=== PATIENT | male | born 1955 | race Caucasian/White ===

== ENCOUNTER 2021-01-07 09:55 | Emergency (ER) | payer MEDICARE, SELFPAY ==
[2021-01-07 10:07] VITALS: BP 140/79; PULSE 84; RESP 17; TEMP 36.9; O2SAT 97; BMI 31.8
--- NOTE | 2021-01-07 10:20 | ED_ITS ---
HPI - Back Pain/Injury General Chief Complaint: Back Pain/Injury Stated Complaint: kidney discomfort Time Seen by Provider: 01/07/21 10:11 Source: patient Mode of arrival: Ambulatory Limitations: no limitations History of Present Illness HPI Narrative: Patient is a 65-year-old male. According to his he has had a stroke in the past does have some issues with short-term memory. He is here for evaluation of right-sided back pain. According to the patient he has had right-sided back pain for the past year. Unsure if it has been on a daily basis but he states that for the past couple days his symptoms have worsened. He stated that the symptoms got worse today but that he also stated that it was worse last evening. Does not appear to be any specific reason for the increase in discomfort. He denies any abdominal pain. No skin changes. No testicular pain. Related Data Home Medications Medication Instructions Recorded Confirmed fluoxetine 20 mg PO DAILY 01/07/21 01/07/21 levothyroxine 100 mcg PO DAILY 01/07/21 01/07/21 Previous Rx's Medication Instructions Recorded cyclobenzaprine 10 mg PO TID PRN #14 tab 01/07/21 Allergies Allergy/AdvReac Type Severity Reaction Status Date / Time No Known Drug Allergies Allergy Verified 01/07/21 10:11 Review of Systems Constitutional Constitutional: Denies fever(s) Cardiovascular Cardiovascular: Denies chest pain and Denies dyspnea Respiratory Respiratory: Denies dyspnea Gastrointestinal Gastrointestinal: Denies abdominal pain Genitourinary Genitourinary: Denies testicular pain Musculoskeletal Musculoskeletal: Reports back pain Integumentary/Breasts Skin/Breast: Denies rash Hematologic/Lymphatic On Anticoagulants: No Allergic/Immunologic Allergic/Immunologic: Reports system reviewed and no additional complaints, exc ept as documented Patient History Medical History History of CVA (cerebrovascular accident) Social History Smoking Status: Never smoker Smoking Status: Never smoker alcohol intake frequency: a few times a week Substance Use Type: does not use Exam Initial Vital Signs Initial Vital Signs: Vital Signs Temperature 98.4 F 01/07/21 10:07 Pulse Rate 84 01/07/21 10:07 Respiratory Rate 17 01/07/21 10:07 Blood Pressure 140/79 01/07/21 10:07 Pulse Oximetry 97 01/07/21 10:07 Const General: cooperative Limitations: mental status not altered HENMT Head: normal to inspection and normocephalic Resp Effort & Inspection: normal respiratory effort Cardio Rate: regular rate Back/Spine/Pelvis Thoracic/Lumbar Spine: paraspinal tenderness (Right-sided thoracolumbar discomfort), No thoracic spinal tenderness and No lumbar spinal tenderness Skin Lesions: no lesions Rashes: no rashes Neuro General: patient alert and patient awake Extrem General: normal to inspection Psych Appearance: grossly normal and well kempt Course Vital Signs Vital signs: Vital Signs - 8 hr 01/07/21 10:07 Temperature 98.4 F Pulse Rate 84 Respiratory Rate 17 Blood Pressure 140/79 Pulse Oximetry 97 [facility] - Back Pain/Injury Lab Data Attestation: I reviewed the patient's lab results. Labs: Urine Dip Bedside Urine Glucose Negative Bedside Urine Bilirubin - Negative Bedside Urine Ketone - Negative Urine Specific [place] 1.030 Bedside Urine Occult Blood - Negative Bedside Urine pH 6.0 Bedside Urine Protein - Negative Bedside Urine Urobilinogen - Negative Bedside Urine Nitrite - Negative Bedside Urine Leukocytes - Negative Esterase [facility] Narrative Medical decision making narrative: I was able to reproduce the discomfort along the right-sided paraspinal region in the thoracolumbar area. It was lateral to midline. He had no midline tenderness. He had no flank tenderness. There is no skin rashes over the area. I have a very high suspicion that this is musculoskeletal in origin. Patient is concerned that he has a kidney issue based on the location of his discomfort however I feel that this is less likely as his discomfort is over the lower ribs and I am confident that I am not palpating his kidney in the location where he is having the discomfort. There is no signs of trauma. I do not feel any radiologic studies are necessary. We did discuss conservative treatment. He was given return precautions. He expressed understanding and agreement. Discharge Plan Departure Patient Disposition: Home Clinical Impression: Strain of lumbar region Instructions: DI for Back Strain or Sprain Activity Restrictions/Additional Instructions: The urinalysis is unremarkable. There are no rashes over the area that would make me concerned about an infection such as shingles. I have low suspicion that your symptoms today are result of your kidneys. I recommend that you continue with conservative measures to include heat in ice and light stretching and anti-inflammatories. You can use the muscle relaxers given to you today as needed. Return to the emergency department for any new or worsening symptoms Prescriptions: New cyclobenzaprine 10 mg tablet 10 mg PO TID PRN (Reason: muscle spasm) Qty: 14 RF: 0 No Action fluoxetine 20 mg capsule 20 mg PO DAILY RF: 0 levothyroxine 100 mcg tablet 100 mcg PO DAILY RF: 0
[2021-01-07 11:06] VITALS: BP 139/75; PULSE 78; RESP 19; O2SAT 96
== END 2021-01-07 11:07 | disposition home or self-care (01) ==
PROVIDERS: Emergency Provider Emergency Medicine
DX: S39.012A Strain of muscle, fascia and tendon of lower back, initial encounter (principal)
CPT/HCPCS: 81003; 99281; 99282

== ENCOUNTER → 2022-07-18 16:19 | Outpatient (CLI) | payer OTHER, SELFPAY ==
[2022-07-18 17:11] LABS: Add Manual Diff / Slide Review NO; Basophils Absolute Auto 0 /uL (0-100); Basophils Percent Auto 0.5 % (0-2); Eosinophils Absolute Auto 100 /uL (0-450); Eosinophils Percent Auto 1.3 % (2-4); Hematocrit 42.1 % (41-53); Hemoglobin 14.4 g/dL (13.5-17.5); Lymphocytes Absolute Auto 1100 /uL (1100-4500); Mean Corpuscular HGB Conc 34.2 % (30-36); Mean Corpuscular Hemoglobin 31.3 PG (26-34); Mean Corpuscular Volume 91.6 fL (80-100); Monocytes Absolute Auto 600 /uL (0-900); Monocytes Percent Auto 8.7 % (3-14); Neutrophils Absolute Auto 5000 /uL (1500-7000); Neutrophils Percent Auto 73.5 % (50-75); Platelet Count 209 X10^3/uL (150-400); White Blood Cell Count 6.7 X10^3/uL (4.5-11.0)
[2022-07-18 17:20] LABS: Hemoglobin A1C% w Est Avg Glu 5.5 % (4.0-6.0)
[2022-07-18 17:26] LABS: Alanine Aminotransferase 19 IU/L (<50); Albumin 4.3 g/dL (3.5-5.0); Albumin Globulin Ratio 1.5 (1.0-2.8); Alkaline Phosphatase 80 U/L (38-126); Aspartate Aminotransferase 22 IU/L (17-59); BUN Creatinine Ratio 15.8 (6-22); Bilirubin Total 0.4 mg/dL (0.2-1.3); Blood Urea Nitrogen 19 mg/dL (9-20); Carbon Dioxide 28 mmol/L (22-32); Chloride 106 mmol/L (98-107); Cholesterol 122 mg/dL (140-199); Estimated Glomerular Filt Rate > 60 mL/min (>60); Globulin 2.9 g/dL (1.7-4.1); Glucose 120 mg/dL (80-110); HDL Cholesterol 60 mg/dL (40-60); HEMOLYSIS < 15 (0-50); LDL Cholesterol Calculated 45 mg/dL (<100); Potassium 4.5 mmol/L (3.4-5.1); Sodium 142 mmol/L (137-145); Total Protein 7.2 g/dL (6.3-8.2); Triglycerides 86 mg/dL (35-150)
[2022-07-18 17:58] LABS: TSH w/ Reflex to FT4 3.36 uIU/mL (0.47-4.68)
== END ==
PROVIDERS: PCP Family Medicine; Referring Provider Family Medicine; Visit Provider Family Medicine
DX: E03.9 Hypothyroidism, unspecified (principal); E78.5 Hyperlipidemia, unspecified; I63.9 Cerebral infarction, unspecified
CPT/HCPCS: 36415; 80053; 80061; 83036; 84443; 85025

== ENCOUNTER → 2023-08-29 11:55 | Outpatient (CLI) | payer MEDICARE, SELFPAY ==
[2023-08-29 13:15] LABS: Hemoglobin A1C% w Est Avg Glu 5.4 % (4.0-6.0)
[2023-08-29 13:51] LABS: Alanine Aminotransferase 19 IU/L (<50); Albumin 4.1 g/dL (3.5-5.0); Albumin Globulin Ratio 1.5 (1.0-2.8); Alkaline Phosphatase 73 U/L (38-126); Aspartate Aminotransferase 29 IU/L (17-59); BUN Creatinine Ratio 14.9 (6-22); Bilirubin Total 0.6 mg/dL (0.2-1.3); Blood Urea Nitrogen 18 mg/dL (9-20); Calcium 9.5 mg/dL (8.4-10.2); Carbon Dioxide 29 mmol/L (22-32); Chloride 105 mmol/L (98-107); Estimated Glomerular Filt Rate > 60 mL/min (>60); Globulin 2.8 g/dL (1.7-4.1); Glucose 106 mg/dL (80-110); HEMOLYSIS < 15 (0-50); Potassium 4.5 mmol/L (3.4-5.1); Sodium 140 mmol/L (137-145); Total Protein 6.9 g/dL (6.3-8.2)
[2023-08-29 14:21] LABS: Prostate Specific Antigen Scrn 2.65 ng/mL (0.1-4.0)
[2023-08-29 14:23] LABS: TSH w/ Reflex to FT4 3.45 uIU/mL (0.47-4.68)
[2023-08-30 17:43] LABS: HIV 1 & 2 Ab/Ag 4th Gen Combo NEGATIVE (NEGATIVE); Hep C Virus Ab w/Reflex Quant NEGATIVE s/c (NEGATIVE)
== END ==
PROVIDERS: PCP Family Medicine; Referring Provider Family Medicine; Visit Provider Family Medicine
DX: Z00.00 Encounter for general adult medical examination without abnormal findings (principal); E78.5 Hyperlipidemia, unspecified; Z12.5 Encounter for screening for malignant neoplasm of prostate; E03.9 Hypothyroidism, unspecified
CPT/HCPCS: 36415; 80053; 83036; 84443; 86803; 87389; G0103

== ENCOUNTER 2023-11-16 19:59 | Inpatient (IN) | payer MEDICARE, SELFPAY ==
[2023-11-16] VITALS (13 sets, daily range): BP systolic 138–184; BP diastolic 79–97; PULSE 65–91; RESP 10–28; TEMP 36.4–36.8; O2SAT 93–97; BMI 32.9; BMI 31.6
--- NOTE | 2023-11-16 20:07 | DI.CT.S_ITS ---
PROCEDURE: CT STROKE INDICATIONS: L FACIAL DROOP TECHNIQUE: Noncontrast 4.5 mm thick angled axial sections acquired from the foramen magnum to the vertex, with coronal reformats. For radiation dose reduction, the following was used: automated exposure control, adjustment of mA and/or kV according to patient size. COMPARISON: None. FINDINGS: Image quality: Diagnostic. CSF spaces: Basal cisterns are patent. No extra-axial fluid collections. The ventricles are symmetric in size and shape. Brain: Probable subacute lacunar infarct in left basal ganglia. No intracranial bleeds or masses. There is cerebral volume loss for age, with resultant ventricular and sulcal prominence. There are periventricular and deep white matter chronic small vessel ischemic changes. There is intracranial internal carotid artery atherosclerosis. Skull and face: Calvarium and visualized facial bones appear intact, without suspicious lesions. Sinuses: Visualized sinuses and mastoids are clear. IMPRESSION: 1. Suspect subacute lacunar infarct in the left basal ganglia. This study fulfills neurological imaging criteria for inclusion or exclusion of acute stroke therapies based on available published neurological guidelines. Dictated by: Jorge A Smith M.D. on 11/16/2023 at 20:17 Approved by: Jorge A Smith M.D. on 11/16/2023 at 20:19
--- NOTE | 2023-11-16 20:15 | ED.NEUROSD ---
HPI - Neuro Symptoms/Deficit General Chief Complaint: Neuro Symptoms/Deficit Stated Complaint: TIA LKW 1919 Time Seen by Provider: 11/16/23 20:00 History of Present Illness HPI Narrative: 67-year-old male with history of CVA, no residual deficits, hyperlipidemia, hypothyroidism presents by EMS from home for slurred speech and left-sided facial droop. Patient was discharged this evening from [facility] in [place] for exact same presentation. Patient underwent imaging including CT angio and MRI that did not show any obvious abnormalities. Patient was discharged on aspirin and Plavix. Patient states that he went home and while he was talking to his his speech became ?slurry?. Family requested that patient be sent to [facility] instead of going back to [facility] because they felt like they discharged him too soon. On arrival patient had normal speech but did have a slight droop to his left upper lip. Related Data Home Medications Medication Instructions Recorded Confirmed aspirin 325 mg tablet 325 mg PO DAILY 07/18/22 11/16/23 Previous Rx's Medication Instructions Recorded atorvastatin 40 mg tablet 40 mg PO DAILY #90 tabs 08/29/23 fluoxetine 20 mg capsule 60 mg (3 x 20 mg) PO DAILY #270 08/29/23 caps levothyroxine 100 mcg tablet 100 mcg PO DAILY #90 tabs 08/29/23 Allergies Allergy/AdvReac Type Severity Reaction Status Date / Time No Known Drug Allergies Allergy Verified 08/29/23 11:19 Review of Systems Review of Systems Narrative: See HPI Patient History Medical History Encounter for subsequent annual wellness visit (AWV) in Medicare patient Depression Right sided weakness Hyperlipidemia Hypothyroid Ischemic stroke History of CVA (cerebrovascular accident) Social History household members: spouse Smoking Status: Never smoker alcohol intake: current Smoking Status: Never smoker alcohol intake frequency: a few times a week Substance Use Type: does not use Exam Initial Vital Signs Initial Vital Signs: Vital Signs Pulse Rate 91 H 11/16/23 20:07 Pulse Oximetry 93 11/16/23 20:07 Const: Awake, alert, no acute distress, nontoxic appearing Cardiac: regular rate, regular rhythm RESP: unlabored, clear bilaterally, no wheezing GI: Soft, nontender, nondistended, no rebound, no guarding MSK: Atraumatic, full range of motion, pulses equal Skin: Warm, Dry, intact, no rashes Neuro: AO x3, sensation intact and equal, strength intact and equal, no ataxia, no drift, normal speech. Slight left upper lip droop Course Orders Ordered: ED Orders 11/16/23 20:07 CT Stroke Stat Urinalysis and Microscopic Stat Urine Drug Screen, Rapid Stat EKG-12 Lead Stat 11/16/23 20:15 Complete Blood Count AUTO DIFF Stat Comprehensive Metabolic Panel Stat Ethanol (ETOH) Stat PTT Partial Thromboplastin John Stat Prothrombin Time INR Stat Troponin & CK Cardiac Panel Stat 11/16/23 20:17 CT angio head and neck Stat Acetaminophen (Acetaminophen 325 Mg Tablet) 650 mg PO Q6H PRN PRN Reason: Fever/Mild Pain (1-3) Hydrocodone Bitart/Acetaminophen (Hydrocodone/Acet 5/325 Tablet) 1 tab PO Q4H PRN PRN Reason: Pain, Moderate (4-6) Al Hydrox/Mg Hydrox/Simethicone (Mag Hydrox/Alum/Simeth 30 Ml Udc) 30 ml PO Q6HR PRN PRN Reason: Dyspepsia Aspirin (Aspirin Ec 81 Mg Tablet) 81 mg PO DAILY KARISSA Atorvastatin Calcium (Atorvastatin 20 Mg Tablet) 40 mg PO DAILY KARISSA Calcium Carbonate (Calcium Carbonate 500 Mg Tab) 1,000 mg PO Q4HR PRN PRN Reason: Dyspepsia Clopidogrel Bisulfate (Clopidogrel 75 Mg Tablet) 75 mg PO DAILY KARISSA Fluoxetine HCl (Fluoxetine 20 Mg Capsule) 60 mg PO DAILY [facility] Hydralazine HCl (Hydralazine 20 Mg/Ml Vial) 10 mg IV Q6HR PRN PRN Reason: Hypertension Levothyroxine Sodium (Levothyroxine 100 Mcg Tablet) 100 mcg PO DAILY KARISSA Lorazepam (Lorazepam 0.5 Mg Tablet) 0.5 mg PO Q6HR PRN PRN Reason: Anxiety Naloxone HCl (Naloxone 0.4 Mg/Ml Vial) 0.2 mg IV Q2MIN PRN PRN Reason: Opiate Reversal Ondansetron HCl (Ondansetron 4 Mg/2 Ml Inj) 4 mg IV Q6HR PRN PRN Reason: Nausea And Vomiting Discontinued Medications Aspirin (Aspirin 81 Mg Chew Tab) 324 mg PO NOW ONE Stop: 11/16/23 20:10 Last Admin: 11/16/23 21:54 Dose: 324 mg Documented By: ANNE Aspirin (Aspirin Ec 325 Mg Tablet) 325 mg PO DAILY KARISSA Vital Signs Vital signs: Vital Signs - 8 hr 11/16/23 20:45 11/16/23 20:45 11/16/23 20:58 Pulse Rate 83 81 Respiratory Rate 21 28 H Blood Pressure 178/97 H Pulse Oximetry 95 94 11/16/23 20:58 11/16/23 21:00 11/16/23 21:00 Pulse Rate 80 Respiratory Rate 26 H Blood Pressure 184/86 H 160/90 H Pulse Oximetry 94 11/16/23 21:30 11/16/23 21:30 11/16/23 22:00 Pulse Rate 76 76 Respiratory Rate 27 H 20 Blood Pressure 151/82 H Pulse Oximetry 94 95 11/16/23 22:00 11/16/23 22:30 11/16/23 22:30 Pulse Rate 72 Respiratory Rate 18 Blood Pressure 156/83 H 164/90 H Pulse Oximetry 95 MDM - Neuro Symptoms/Deficit Differential Diagnosis Differential diagnosis: Likely delirium, cerebrovascular accident and transient cerebral ischemia Lab Data 11/16/23 20:15 11/16/23 20:15 Labs: Lab Results 11/16/23 Range/Units 20:15 WBC 7.8 (4.5-11.0) X10^3/uL RBC 4.56 (4.5-5.9) X10^6/uL Hgb 14.2 (13.5-17.5) g/dL Hct 42.1 (41-53) % MCV 92.3 (80-100) fL MCH 31.1 (26-34) PG MCHC 33.7 (30-36) % RDW 14.1 (11.6-14.8) % Plt Count 183 (150-400) X10^3/uL Neut % (Auto) 73.0 (50-75) % Lymph % (Auto) 15.0 L (25-40) % [place] % (Auto) 10.2 (3-14) % Eos % (Auto) 1.0 L (2-4) % Baso % (Auto) 0.8 (0-2) % Neut # (Auto) 5700 (7788-8405) /uL Lymph # (Auto) 1200 (3736-0748) /uL [place] # (Auto) 800 (0-900) /uL Eos # (Auto) 100 (0-450) /uL Baso # (Auto) 100 (0-100) /uL PT 10.6 (9.4-12.5) SECONDS INR 0.9 (0.9-1.3) APTT 24 L (25.1-36.5) SECONDS Sodium 141 (137-145) mmol/L Potassium 3.8 (3.4-5.1) mmol/L Chloride 109 H (98-107) mmol/L Carbon Dioxide 27 (22-32) mmol/L BUN 16 (9-20) mg/dL Creatinine 1.19 (0.66-1.25) mg/dL Estimated GFR > 60 (>60) mL/min BUN/Creatinine Ratio 13.4 (6-22) Glucose 126 H (80-110) mg/dL Calcium 9.3 (8.4-10.2) mg/dL Total Bilirubin 0.6 (0.2-1.3) mg/dL AST 30 (17-59) IU/L ALT 19 (<50) IU/L Alkaline Phosphatase 74 (38-126) U/L Total Creatine Kinase 171 H (55-170) U/L Troponin I < 0.012 (0.01-0.034) ng/mL Total Protein 7.0 (6.3-8.2) g/dL Albumin 4.1 (3.5-5.0) g/dL Globulin 2.9 (1.7-4.1) g/dL Albumin/Globulin Ratio 1.4 (1.0-2.8) Ethyl Alcohol < 10 ( - 10) mg/dL Point of Care Testing Glucose POC 120 MDM Narrative Medical decision making narrative: Recurrence of slurred speech and left facial droop, discharged less than 12 hours ago from outside hospital for similar presentation. On my evaluation patient's speech is normal but he does have a slight droop to his left upper lip. Due to a recent hospitalization with negative workup call placed to [facility] stroke team. Spoke with Dr. Rudd of neurology. Records were reviewed via phone, they state that the workup at [facility] was appropriate and patient was discharged on appropriate therapy, however it was possible that he is a Plavix nonresponder. They recommended a platelet response test, however we do not have the capability to run this test at our facility. They recommended a repeat CT angio and repeat MRI and depending on results patient could possibly be switched from Plavix to Brilinta. Laboratory work and imaging reviewed. No significant stenosis on CT angio. No worsening of patient's symptoms. Discussed case with hospitalist, who will admit patient for observation Discharge Plan Departure Patient Disposition: Admitted as Observation Clinical Impression: Acute CVA (cerebrovascular accident) Admit Date/Time: 11/16/23 22:59 Admit Provider: Tomi Quintanilla
--- NOTE | 2023-11-16 20:17 | DI.CT.S_ITS ---
PROCEDURE: CT ANGIO HEAD AND NECK INDICATIONS: L FACIAL DROOP, RECENT CTA 11/14 SUBOPTIMAL STUDY TECHNIQUE: After the administration of intravenous contrast, 1 mm thick sections acquired from the aortic arch through the [place] of [place]. 3-dimensional qwfpjmz-gyjjahccp-fqpocbrpqp (MIP) and/or volume rendering reformats were acquired of the central intracranial vasculature and neck separately. For radiation dose reduction, the following was used: automated exposure control, adjustment of mA and/or kV according to patient size. COMPARISON: [facility], CT, CT STROKE, 11/16/2023, 20:04. FINDINGS: Image quality: Diagnostic. BRAIN: CSF spaces: Ventricles are normal in size and shape. Basal cisterns are patent. No extra-axial fluid collections. Brain: No significant abnormality of the brain can be seen. Skull and face: Calvarium and facial bones appear intact, without suspicious lesions. Orbits appear normal. Sinuses: Bilateral maxillary sinus mucous retention cyst. The mastoids are clear. HEAD CT ANGIOGRAPHY: Anterior circulation: Intracranial internal carotid arteries are normal in size and flow. Mild calcified plaques at the cavernous segment of the internal carotid arteries bilaterally. The flow within the paired anterior cerebral arteries is normal and symmetric. The flow within the middle cerebral arteries is normal and symmetric. The anterior communicating artery is seen. No aneurysms are seen. Posterior circulation: Visualized portions of the vertebral arteries demonstrate normal caliber, and join to form a normal appearing basilar artery. Flow within the posterior cerebral arteries is normal and symmetric. No aneurysms are seen. NECK CT ANGIOGRAPHY: Carotid system: The great vessels demonstrate a conventional anatomy as they arise from the aortic arch. The origins of the common carotid arteries appear patent. The common carotid arteries demonstrate normal caliber and courses. The bifurcation regions are both widely patent. The internal carotid arteries demonstrate normal calibers and courses. Posterior circulation: The origins of the vertebral arteries both appear widely patent. The more superior extracranial portions of both vertebral arteries also demonstrate normal courses and calibers. They join to form a normal appearing basilar artery. Soft tissues: Visualized neck soft tissues demonstrate no suspicious abnormalities. Bones: No suspicious bony lesions. Visualized cervical spine appears normally aligned. Severe spondylitic changes in cervical spine. IMPRESSION: 1. No significant intracranial arterial abnormality is seen. 2. No significant abnormality is seen within the arteries of the neck. 3. Bilateral maxillary sinus disease. Any quantitative measurements of stenosis were performed using NASCET criteria. Dictated by: Jorge A Smith M.D. on 11/16/2023 at 22:36 Approved by: Jorge A Smith M.D. on 11/16/2023 at 22:43
[2023-11-16 20:33] LABS: Add Manual Diff / Slide Review NO; Basophils Absolute Auto 100 /uL (0-100); Basophils Percent Auto 0.8 % (0-2); Eosinophils Absolute Auto 100 /uL (0-450); Hematocrit 42.1 % (41-53); Hemoglobin 14.2 g/dL (13.5-17.5); Lymphocytes Absolute Auto 1200 /uL (1100-4500); Mean Corpuscular HGB Conc 33.7 % (30-36); Mean Corpuscular Hemoglobin 31.1 PG (26-34); Mean Corpuscular Volume 92.3 fL (80-100); Monocytes Absolute Auto 800 /uL (0-900); Monocytes Percent Auto 10.2 % (3-14); Neutrophils Absolute Auto 5700 /uL (1500-7000); Platelet Count 183 X10^3/uL (150-400); Red Blood Cell Count 4.56 X10^6/uL (4.5-5.9); Red Cell Distribution Width 14.1 % (11.6-14.8); White Blood Cell Count 7.8 X10^3/uL (4.5-11.0)
[2023-11-16 20:39] LABS: INR 0.9 (0.9-1.3); Prothrombin Time 10.6 SECONDS (9.4-12.5)
[2023-11-16 20:41] LABS: PTT Partial Thromboplastin Tim 24 SECONDS (25.1-36.5)
[2023-11-16 20:46] LABS: Alanine Aminotransferase 19 IU/L (<50); Albumin 4.1 g/dL (3.5-5.0); Albumin Globulin Ratio 1.4 (1.0-2.8); Alkaline Phosphatase 74 U/L (38-126); Aspartate Aminotransferase 30 IU/L (17-59); BUN Creatinine Ratio 13.4 (6-22); Bilirubin Total 0.6 mg/dL (0.2-1.3); Blood Urea Nitrogen 16 mg/dL (9-20); Calcium 9.3 mg/dL (8.4-10.2); Carbon Dioxide 27 mmol/L (22-32); Chloride 109 mmol/L (98-107); Creatine Kinase 171 U/L (55-170); Estimated Glomerular Filt Rate > 60 mL/min (>60); Ethanol (ETOH) < 10 mg/dL; Globulin 2.9 g/dL (1.7-4.1); Glucose 126 mg/dL (80-110); HEMOLYSIS < 15 (0-50); Potassium 3.8 mmol/L (3.4-5.1); Sodium 141 mmol/L (137-145)
[2023-11-16 20:57] LABS: Troponin I < 0.012 ng/mL (0.01-0.034)
[2023-11-16] MEDS: ASPIRIN 81 MG CHEW TAB 324 MG PO (21:54)
--- NOTE | 2023-11-16 23:57 | PM.HP.1 ---
History of Present Illness History of Present Illness Date Patient Seen: 11/17/23 Time Patient Seen: 00:30 Chief complaint: TIA LKW 1919 Narrative: The pt is a 67 yo with a hx of a CVA in 2006 that left him with Rt sided clumbsiness and mild weakness who started having slurred speech and facial numbness yesterday on 11/14. He went to [facility] and stayed overnight there for evaluation where a CT head, CTA, and MRI was done which was reported as negative for any new findings. He was discharged home and was there at home for approximately 4 hours before he noted milder slurred speech again and very mild tingling in the Left arm, not leg. He then came to our ER for evaluation. The Er provider inquired to the specialist at the [facility] who recommended repeating the MRI which we cannot get until the morning. A CT head and CTA was negative tonight at our facility. He has been treated for his previous stroke with just 325 mg of aspirin, no plavix, and he is on a statin at home. HE denies any recent illness, acute changes in his health, no change in meds. He reports that he was drinking several beers prior to arrival to the ER on the but none tonight. [facility] Medical History Encounter for subsequent annual wellness visit (AWV) in Medicare patient Depression Right sided weakness Hyperlipidemia Hypothyroid Ischemic stroke History of CVA (cerebrovascular accident) Social History household members: spouse Smoking Status: Never smoker alcohol intake: current Meds Home Medications and Allergies Home Medications Medication Instructions Recorded Confirmed Type aspirin 325 mg tablet 325 mg PO DAILY 07/18/22 11/16/23 History cholecalciferol (vitamin D3) 1 tab PO DAILY 07/18/22 11/16/23 History atorvastatin 40 mg tablet 40 mg PO DAILY #90 tabs 08/29/23 11/16/23 Rx fluoxetine 20 mg capsule 60 mg (3 x 20 mg) PO DAILY #270 08/29/23 11/16/23 Rx caps levothyroxine 100 mcg tablet 100 mcg PO DAILY #90 tabs 08/29/23 11/16/23 Rx Allergies Allergy/AdvReac Type Severity Reaction Status Date / Time No Known Drug Allergies Allergy Verified 08/29/23 11:19 Exam Vital Signs (past 8 hours): - 11/16/23 20:07 11/16/23 20:09 11/16/23 20:09 Temperature Pulse Rate 91 H 91 H Respiratory Rate Blood Pressure 138/85 Pulse Oximetry 93 96 Oxygen Delivery Method Oxygen Flow Rate 11/16/23 20:13 11/16/23 20:30 11/16/23 20:30 Temperature 98.2 F Pulse Rate 90 84 Respiratory Rate 18 19 Blood Pressure 138/85 164/79 H Pulse Oximetry 96 94 Oxygen Delivery Method Room Air Room Air Oxygen Flow Rate 11/16/23 20:45 11/16/23 20:45 11/16/23 20:58 Temperature Pulse Rate 83 81 Respiratory Rate 21 28 H Blood Pressure 178/97 H Pulse Oximetry 95 94 Oxygen Delivery Method Oxygen Flow Rate 11/16/23 20:58 11/16/23 21:00 11/16/23 21:00 Temperature Pulse Rate 80 Respiratory Rate 26 H Blood Pressure 184/86 H 160/90 H Pulse Oximetry 94 Oxygen Delivery Method Oxygen Flow Rate 11/16/23 21:30 11/16/23 21:30 11/16/23 22:00 Temperature Pulse Rate 76 76 Respiratory Rate 27 H 20 Blood Pressure 151/82 H Pulse Oximetry 94 95 Oxygen Delivery Method Oxygen Flow Rate 11/16/23 22:00 11/16/23 22:30 11/16/23 22:30 Temperature Pulse Rate 72 Respiratory Rate 18 Blood Pressure 156/83 H 164/90 H Pulse Oximetry 95 Oxygen Delivery Method Oxygen Flow Rate 11/16/23 23:00 11/16/23 23:01 11/16/23 23:01 Temperature Pulse Rate 70 73 Respiratory Rate 10 L 15 Blood Pressure 156/81 H Pulse Oximetry 94 95 Oxygen Delivery Method Oxygen Flow Rate 11/16/23 23:39 Temperature 97.6 F Pulse Rate 65 Respiratory Rate 16 Blood Pressure 156/81 H Pulse Oximetry 97 Oxygen Delivery Method Oxygen Flow Rate 0 Oxygen Delivery Method Room Air Oxygen Flow Rate 0 Const General: cooperative, healthy appearing and comfortable Nutritional Appearance: obese Orientation: alert and oriented x3 Eyes General: appearance normal, both eyes and all related structures Resp Auscultation: clear to auscultation bilaterally Cardio Rate: regular rate Rhythm: regular rhythm Neuro General: patient oriented x3, moves all extremities and no focal motor deficits Objective Labs 11/16/23 20:15 11/16/23 20:15 Labs: Laboratory Results - last 24 hr 11/16/23 20:15 WBC 7.8 RBC 4.56 Hgb 14.2 Hct 42.1 MCV 92.3 MCH 31.1 MCHC 33.7 RDW 14.1 Plt Count 183 Neut % (Auto) 73.0 Lymph % (Auto) 15.0 L [place] % (Auto) 10.2 Eos % (Auto) 1.0 L Baso % (Auto) 0.8 Neut # (Auto) 5700 Lymph # (Auto) 1200 [place] # (Auto) 800 Eos # (Auto) 100 Baso # (Auto) 100 PT 10.6 INR 0.9 APTT 24 L Sodium 141 Potassium 3.8 Chloride 109 H Carbon Dioxide 27 BUN 16 Creatinine 1.19 Estimated GFR > 60 BUN/Creatinine Ratio 13.4 Glucose 126 H Calcium 9.3 Total Bilirubin 0.6 AST 30 ALT 19 Alkaline Phosphatase 74 Total Creatine Kinase 171 H Troponin I < 0.012 Total Protein 7.0 Albumin 4.1 Globulin 2.9 Albumin/Globulin Ratio 1.4 Ethyl Alcohol < 10 Assessment & Plan Assessment and plan (1) Slurred speech: Status: Acute (2) Hyperlipidemia: Qualifiers: Hyperlipidemia type: unspecified Qualified Code(s): E78.5 - Hyperlipidemia, unspecified Status: Acute (3) HTN (hypertension): Status: Acute Plan I spoke with the ER provider regarding the pt's symptoms and labs and imaging and agree to admit the pt for an MRI. Will monitor the pt closely, neuro checks and vitals Q4, repeat labs in am, MRI of the head ordered, he reports that he was bolused and started on Plavix yesterday and will continue the plavix and reduce the aspirin to 81 mg. Could consider increasing the dose of the statin. Since he has no physical weakness or deficits, will hold on PT/OT consult. His BP is mildly elevated, but doubtful that this represents PRES, but MRI pending. PRN meds ordered Quality VTE Deep Vein Thrombosis/Pulmonary Embolism Present on Admission: No
[2023-11-17] VITALS (11 sets, daily range): BP systolic 144–154; BP diastolic 82–87; PULSE 66–82; RESP 16–17; TEMP 35.9–37; O2SAT 96–99
--- NOTE | 2023-11-17 00:11 | DI.MRI.S_ITS ---
PROCEDURE: MR HEAD/BRAIN WO CON INDICATIONS: slurred speech TECHNIQUE: Noncontrast axial T1 spin echo, axial T2 fast spin echo, sagittal and axial FLAIR, coronal T2 fast spin echo, axial gradient echo, axial diffusion and ADC through the brain. COMPARISON: [facility], CT, CT ANGIO HEAD AND NECK, 11/16/2023, 20:46. [facility], CT, CT STROKE, 11/16/2023, 20:04. FINDINGS: Image quality: Excellent. CSF Spaces: Basal cisterns are patent. No extra-axial fluid collections. Ventricles are normal in size and shape. Brain: No intracranial masses or hemorrhage. Rene/white matter interface is normal. Brainstem appears normal. Diffusion-weighted images demonstrate 2 punctate areas of restricted diffusion within the right frontal lobe. These areas correspond to hyperintense signal on FLAIR. However, no corresponding hypointensity on ADC sequence. No chronic ischemic insults. Normal intravascular flow voids are present. Skull and face: Calvarium has normal marrow signal. Orbits appear normal. Sinuses: Sinuses demonstrate bilateral mucous retention cyst versus polyp as well as scattered areas of mucosal thickening. Mild fluid is present within the right mastoid air cells. Recommend correlation to symptoms of mastoiditis. IMPRESSION: Two punctate areas of hyperintense signal on diffusion in the right frontal lobe. These are felt to likely represent late subacute/chronic foci of potential ischemia, or foci of prior infection/inflammation. Dictated by: Lore Rondon M.D. on 11/17/2023 at 9:52 Approved by: Lore Rondon M.D. on 11/17/2023 at 9:55
[2023-11-17 05:29] LABS: Add Manual Diff / Slide Review NO; Basophils Absolute Auto 0 /uL (0-100); Basophils Percent Auto 0.6 % (0-2); Eosinophils Absolute Auto 100 /uL (0-450); Eosinophils Percent Auto 1.4 % (2-4); Hematocrit 41.3 % (41-53); Hemoglobin 13.8 g/dL (13.5-17.5); Lymphocytes Absolute Auto 1900 /uL (1100-4500); Lymphocytes Percent Auto 27.9 % (25-40); Mean Corpuscular HGB Conc 33.3 % (30-36); Monocytes Absolute Auto 500 /uL (0-900); Neutrophils Absolute Auto 4200 /uL (1500-7000); Neutrophils Percent Auto 62.1 % (50-75); Platelet Count 168 X10^3/uL (150-400); Red Blood Cell Count 4.45 X10^6/uL (4.5-5.9); Red Cell Distribution Width 14.4 % (11.6-14.8); White Blood Cell Count 6.8 X10^3/uL (4.5-11.0)
[2023-11-17 05:36] LABS: Appearance Urine UA CLEAR; Bilirubin Urine UA NEGATIVE (NEGATIVE); Color Urine UA YELLOW; Glucose Urine UA NEGATIVE (Negative); Ketones Urine UA NEGATIVE (NEGATIVE); Leukocyte Esterase Urine UA NEGATIVE (NEGATIVE); Nitrite Urine UA NEGATIVE (Negative); Occult Blood Urine UA NEGATIVE (Negative); Protein Urine UA NEGATIVE (Negative); Specific Gravity Urine UA 1.025 (1.000-1.035); Urobilinogen Urine UA 0.2 E.U./dL (0.2)
[2023-11-17 05:37] LABS: BUN Creatinine Ratio 14.3 (6-22); Blood Urea Nitrogen 16 mg/dL (9-20); Calcium 9.2 mg/dL (8.4-10.2); Carbon Dioxide 31 mmol/L (22-32); Chloride 110 mmol/L (98-107); Estimated Glomerular Filt Rate > 60 mL/min (>60); Glucose 109 mg/dL (80-110); HEMOLYSIS < 15 (0-50); Potassium 4.1 mmol/L (3.4-5.1); Sodium 143 mmol/L (137-145)
[2023-11-17 06:06] LABS: Bacteria Urine Few (2-10); Culture Indicated Urine Cult Not Indicated; RBC Urine 0-1/HPF (0-5/HPF); Squamous Epithelial Cell Urine 0-1 /HPF (0-5/HPF); Urine Volume 10mL (spun); WBC Urine 1-5/HPF (0-5/HPF)
[2023-11-17] MEDS: LEVOTHYROXINE 100 MCG TABLET PO (09:32)
[2023-11-17] MEDS: FLUoxetine 20 MG CAPSULE 60 MG PO (09:32)
[2023-11-17] MEDS: CLOPIDOGREL 75 MG TABLET PO (09:32)
[2023-11-17] MEDS: ASPIRIN EC 81 MG TABLET PO (09:32)
[2023-11-17] MEDS: ATORVASTATIN 20 MG TABLET 40 MG PO (09:33)
--- NOTE | 2023-11-17 12:03 | CM.DANOTE ---
DCP: Case received, EMR reviewed and met with patient. Introduced self and role. Was able to obtain information regarding patient's baseline activity status prior to hospitalization. DCP assessment completed with information currently available. Patient is a 67 year old male who admitted yesterday evening to the care of the hospitalist team. PCP: Dr. Mauro. Payer: confirmed: [employer] Medicare. Patient came to the hospital via ambulance secondary to having slurred speech, and left sided facial droop. Notes indicate that patient had been discharged from [facility] for same symptoms. Patient was discharged home on aspirin and Plavix. Patient had noted additional slurring of speech. Due to symptoms re-occurring, it was decided that patient come to this hospital. Patient is here for an MRI, for CVA work up. Met with patient in his room. He is alert, did not note any slurred speech during the conversation. Confirmed that he resides in [place] with hos spouse, Tamika. He stated that he is independent at his baseline, no weakness, only speaking. He will be working with the therapy team. P: DCP to continue to follow. Will see how he does with the therapy team. Patient most likely will go home when stable. Kimberly Mock RN/Composition Floor Layer Discharge Planning/Care Management CM Discharge Assessment Start: 11/17/23 12:01 Freq: Status: Active Protocol: Document 11/17/23 12:01 (Rec: 11/17/23 12:03 [id number]) Discharge Planning Assessment Assigned Endless Track Vehicle Mechanic Kimberly Mock RN/Composition Floor Layer Advance Directives? No History Provided By Patient,Medical Record Prior Living Arrangements House Household Members spouse Type of transporation used prior to Drives own vehicle admit Independent with ADL's Yes Is patient alert and oriented? Yes Caregiver for Another No Barriers to Discharge No Discharge Plan Home Transportation Arrangement Spouse Referrals Initiated Other Additional Comment Will see how patient does with the therapy team. Whiteboard Updated in Patient Room with Yes name and ext. # of Endless Track Vehicle Mechanic Review Status In Process Next Review Type Continued Stay Review
[2023-11-17 13:24] LABS: UR Morphine/Opiate cutoff 300 Negative (Negative); Ur Creatinine Normal (Normal); Ur Specific Gravity Normal (Normal); Urine Amphetamines Negative (Negative); Urine Barbiturates Negative (Negative); Urine Benzodiazepines Positive (Negative); Urine Cocaine Negative (Negative); Urine MDMA Negative (Negative); Urine Methadone Negative (Negative); Urine Methamphetamines Negative (Negative); Urine Oxycodone Negative (Negative); Urine Phencyclidine Negative (Negative); Urine Tetrahydrocannabinol Negative (Negative); Urine Tricyclic Antidepressant Negative (Negative); Urine pH Normal (Normal)
--- NOTE | 2023-11-17 14:50 | PT.IIE ---
Current Diagnoses Hyperlipidemia, unspecified (11/16/23) Essential (primary) hypertension (11/16/23) Cerebral infarction, unspecified (11/16/23) Slurred speech (11/16/23) Medical History (Last Reviewed 11/16/23 @ 22:09 by Izzy Bender MD) Depression Encounter for subsequent annual wellness visit (AWV) in Medicare patient History of CVA (cerebrovascular accident) Hyperlipidemia Hypothyroid Ischemic stroke Right sided weakness Physical Therapy Inpatient Evaluation/Re-Eval M1 PT/OT-IP Prior Functional Status Start: 11/17/23 18:00 Freq: NEEDED Status: Active Protocol: Document 11/17/23 14:50 AB (Rec: 11/17/23 18:12 AB [id number]) Medical Review Prior Functional Status Medical History Reviewed Yes Communication able to make needs known Mobility and Gait pt stated that he is independent with all mobilities and ambulation without AD Social History Household Members spouse Living Arrangements House Number of Floors (Floors) One Floor Number of Stairs To Enter/Railing? pt stated that he lives in a duplex where he and spouse stays on one side and his step son stays on the other side 4 steps L rail ascending to enter the house Home Environment Standard Height Toilet,Tub/ Shower Home Equipment Front Wheel Walker,Four Wheel Walker,Grab Bars In Shower Additional Social History Comment pt stated that he takes baths and not showers; stated that he is independent and does not need any DMEs M2 PT-IP Current Condition Start: 11/17/23 18:00 Freq: NEEDED Status: Active Protocol: Document 11/17/23 14:50 AB (Rec: 11/17/23 18:12 AB [id number]) Physical Therapy Current Condition Current Condition Evaluation Date 11/17/23 Treatment Diagnosis CVA; difficulty in walking Onset Date 11/16/23 M3 PT-IP Subjective Start: 11/17/23 18:00 Freq: NEEDED Status: Active Protocol: Document 11/17/23 14:50 AB (Rec: 11/17/23 18:12 AB [id number]) Subjective Physical Therapy Visit Type Type Initial Evaluation Visit Start Time 14:50 Visit Stop Time 15:15 Number of ASSISTANT WOMEN'S SOCCER COACH Visits 0 Physical Therapy Visit Comments Patient Comments agreeable to do PT M4 PT-IP Mobility and Gait Start: 11/17/23 18:00 Freq: NEEDED Status: Active Protocol: Document 11/17/23 14:50 AB (Rec: 11/17/23 18:12 AB [id number]) PT-Bed Mobility Assessment Supine to Sit Supine to Sit Independent Sit to Supine Sit to Supine Independent PT-Transfer Assessment Sit to and From Stand Sit to and from Stand Independent Equipment Transfer Assistive Device None Orthotic/Prosthetic Devices or Brace: No Transfers Transfer Destination Bed,Chair Transfer Technique ambulated Transfer Ability Level of Assist Independent Comments Mobility Comments pt found walking in his room and agreeable to do PT. pt sat on the chair. obtained PLOF and home set up from pt. pt very firm that he is still independent and does not need any DME. stated that he had a CVA ~ 2006 and is unsteady with mobility but able to manage and without h/o falls. pt completed sit to stand mod I and ambulated to the EOB mod I. able to completed bed mobility mod I. pt agreed to ambulate in the hallway and completed ~ 300 ft without AD initial SBA but without LOB and able to ambulate back to room with supervision. pt presents with slight RLE foot drop but pt able to control and manage with increasing RLE elevation and clearance from the floor. pt completed up/ down steps using L rail SBA for safety. pt wanting to brush his teeth after ambulation and able to stand by the sink mod I to complete task. pt agreed that no further PT is needed at this time. Gait Assessment Gait Gait Assistance Required: Independent,Standby Assistance Distance (Feet) 300 Able to Maintain Weight Bearing Status Yes During Gait Assistive Devices Assistive Device None Orthotic/Prosthetic Devices or Brace: No Gait Deviations General Gait Pattern Antalgic Factors Limiting Gait Function Factors Limiting Gait Function Decreased Strength Stair Climbing Assessment Evaluation Level of Assist On Stairs Independent Devices Stair Climbing Assistive Devices Left Railing Technique/Endurance Stair Climbing Direction Ascend and Descend Stair Climbing Technique Step to Step Number of Steps Climbed 3 Query Text: Stair Climbing Set # Repetitions (reps) 1 PT-Balance Assessment Sitting Balance and Reactions Static Sitting Balance Ability Normal Dynamic Sitting Balance Ability Normal Standing Balance and Reactions Static Standing Balance Ability Good Dynamic Standing Balance Ability Good Device Used without AD M5 PT-IP Objective Assessments Start: 11/17/23 18:00 Freq: NEEDED Status: Active Protocol: Document 11/17/23 14:50 AB (Rec: 11/17/23 18:12 AB [id number]) Orientation Orientation/Cognition Level of Alertness Alert Orientation Name,Place,Situation Safety Awareness Understands Safety Issues Memory Description No Deficits Noted Gross Range of Motion Lower Extremity ROM Assessment Within Functional Limits Strength Lower Extremity Strength Assessment Right Impaired Ankle 3+/5 Muscle Tone Muscle Tone WNL Yes M6 PT-IP Treatment Start: 11/17/23 18:00 Freq: NEEDED Status: Active Protocol: Document 11/17/23 14:50 AB (Rec: 11/17/23 18:12 AB [id number]) Physical Therapy Treatment Education Education Provided Safety M7 PT-IP Assessment and Plan Start: 11/17/23 18:00 Freq: NEEDED Status: Active Protocol: Document 11/17/23 14:50 AB (Rec: 11/17/23 18:12 AB [id number]) PT Summary Assessment and Plan Potential Rehabilitation Potential Good Status of Condition at Evaluation Stable Summary Impairments Strength,Balance,Gait,Activity Tolerance Assessment Summary pt is a 67 y/o M who presented to the ED due to slurred speech. pt admitted for CVA. pt is modified independent with bed mobility and transfers and can be independent in room. supervision for long distance ambulation for safety. pt able to complete stair climbing with SBA for safety. pt plans to go home and will have his spouse to assist him if needed . No further PT needs at this time. Frequency of Treatment Frequency Of Treatment Discharge Recommendations To Nursing Amount of Assist Needed Independent Discharge Recommendations PT Discharge Recommendations Home Transportation Needs at Discharge Private Vehicle
--- NOTE | 2023-11-17 15:08 | PM.PN.1 ---
Subjective Subjective Interval history: 67 M with PMH of prior CVA, hypothyroidism who was discharged after TIA from [facility], presented with L arm numbness and slurred speech. Mild facial asymmetry today, L droop. MRI shows subacute infarct. On asa / plavix therapy. Attempting to get records from OSH. Exam Vital Signs (past 8 hours): - 11/17/23 07:56 11/17/23 08:00 11/17/23 11:00 Temperature 97.1 F L Pulse Rate 82 Respiratory Rate 16 Blood Pressure 148/87 H Pulse Oximetry 96 97 96 Oxygen Delivery Method Room Air Room Air Oxygen Flow Rate 0 0 0 11/17/23 12:00 Temperature 96.7 F L Pulse Rate 80 Respiratory Rate 16 Blood Pressure 150/86 H Pulse Oximetry 97 Oxygen Delivery Method Oxygen Flow Rate 0 Oxygen Delivery Method Room Air Oxygen Flow Rate 0 Narrative Exam Narrative: Gen: WDWN male, no acute distress CV: RRR no m/r/g Pulm: CTA b/l Ext: no edema, no subjective numbness to light touch Neuro: mild L facial droop, improved with smile, mild slurring of words speech largely intelligble. Objective Labs 11/17/23 05:05 11/17/23 05:05 Labs: Laboratory Results - last 24 hr 11/16/23 11/17/23 11/17/23 20:15 05:05 05:19 WBC 7.8 6.8 RBC 4.56 4.45 L Hgb 14.2 13.8 Hct 42.1 41.3 MCV 92.3 93.0 MCH 31.1 31.0 MCHC 33.7 33.3 RDW 14.1 14.4 Plt Count 183 168 Neut % (Auto) 73.0 62.1 Lymph % (Auto) 15.0 L 27.9 [place] % (Auto) 10.2 8.0 Eos % (Auto) 1.0 L 1.4 L Baso % (Auto) 0.8 0.6 Neut # (Auto) 5700 4200 Lymph # (Auto) 1200 1900 [place] # (Auto) 800 500 Eos # (Auto) 100 100 Baso # (Auto) 100 0 PT 10.6 INR 0.9 APTT 24 L Sodium 141 143 Potassium 3.8 4.1 Chloride 109 H 110 H Carbon Dioxide 27 31 BUN 16 16 Creatinine 1.19 1.12 Estimated GFR > 60 > 60 BUN/Creatinine Ratio 13.4 14.3 Glucose 126 H 109 Calcium 9.3 9.2 Total Bilirubin 0.6 AST 30 ALT 19 Alkaline Phosphatase 74 Total Creatine Kinase 171 H Troponin I < 0.012 Total Protein 7.0 Albumin 4.1 Globulin 2.9 Albumin/Globulin Ratio 1.4 Urine Color Yellow Urine Appearance Clear Urine pH 5.0 Ur Specific [place] 1.025 Urine Protein Negative Urine Glucose (UA) Negative Urine Ketones Negative Urine Occult Blood Negative Urine Nitrate Negative Urine Bilirubin Negative Urine Urobilinogen 0.2 Ur Leukocyte Esterase Negative Urine RBC 0-1/hpf Urine WBC 1-5/hpf Ur Squamous Epith Cells 0-1 /hpf Urine Bacteria Few (2-10) H Ur Culture Indicated? Cult not indicated Vol Urine Centrifuged 10ml (spun) U Opiates 300ng/mL cut Ur Oxycodone Screen Urine Methadone Screen Ur Barbiturates Screen U Tricyclic Antidepress Ur Phencyclidine Scrn Ur Amphetamines Screen U Methamphetamines Scrn Ur MDMA Scrn (Ecstasy) U Benzodiazepines Scrn Urine Cocaine Screen U Marijuana (THC) Screen Urine Specific [place] Ethyl Alcohol < 10 Ur Creatinine 11/17/23 05:20 WBC RBC Hgb Hct MCV MCH MCHC RDW Plt Count Neut % (Auto) Lymph % (Auto) [place] % (Auto) Eos % (Auto) Baso % (Auto) Neut # (Auto) Lymph # (Auto) [place] # (Auto) Eos # (Auto) Baso # (Auto) PT INR APTT Sodium Potassium Chloride Carbon Dioxide BUN Creatinine Estimated GFR BUN/Creatinine Ratio Glucose Calcium Total Bilirubin AST ALT Alkaline Phosphatase Total Creatine Kinase Troponin I Total Protein Albumin Globulin Albumin/Globulin Ratio Urine Color Urine Appearance Urine pH Normal Ur Specific [place] Urine Protein Urine Glucose (UA) Urine Ketones Urine Occult Blood Urine Nitrate Urine Bilirubin Urine Urobilinogen Ur Leukocyte Esterase Urine RBC Urine WBC Ur Squamous Epith Cells Urine Bacteria Ur Culture Indicated? Vol Urine Centrifuged U Opiates 300ng/mL cut Negative Ur Oxycodone Screen Negative Urine Methadone Screen Negative Ur Barbiturates Screen Negative U Tricyclic Antidepress Negative Ur Phencyclidine Scrn Negative Ur Amphetamines Screen Negative U Methamphetamines Scrn Negative Ur MDMA Scrn (Ecstasy) Negative U Benzodiazepines Scrn Positive H Urine Cocaine Screen Negative U Marijuana (THC) Screen Negative Urine Specific [place] Normal Ethyl Alcohol Ur Creatinine Normal [facility] Medical History Encounter for subsequent annual wellness visit (AWV) in Medicare patient Depression Right sided weakness Hyperlipidemia Hypothyroid Ischemic stroke History of CVA (cerebrovascular accident) Social History household members: spouse Smoking Status: Never smoker alcohol intake: current Assessment & Plan Assessment & Plan narrative: 1. CVA - continue DAPT for 21 days. Sent cytochrome P450 genotyping to see if may need brillinta instead of plavix per telestroke. Results will take 1-2 weeks, will need outpatient follow up of these results. - PT/OT/Speech evaluation 2. HTN - start 10 mg lisinopril today, hypertensive but improved. 3. HLD - continue atorvastatin 40 daily 4. hypothyroidism - continue home levothyroxine, no changes. Code: Full, surrogate is patient's spouse DVT: Lovenox Dispo: Inpatient, will monitor for 2nd night given CVA, with evidence of unstable plaque given recurrence of symptoms after discharge from OSH. Quality VTE Deep Vein Thrombosis/Pulmonary Embolism Present on Admission: No
[2023-11-17] MEDS: lisinopriL 10 MG TABLET PO (16:07)
--- NOTE | 2023-11-17 17:53 | DI.ECHO.S_ITS ---
[facility]---------+ [facility] +---------+ : : [address] : : : : [id number] : : : : Phone: [phone]+ Echocardiogram Report + + :Name: NAPOLEON PHELPS Study Date: 11/18/2023 Height: 72 in : :[facility] ReadingLocation: Weight: 233 lb : : Gender: Male BSA: 2.3 m2 : :: 1955 Age: 67 yrs BP: 127/70 mmHg: :Reason For Study: CVA : :Ordering Physician: DARCY, : :JUSTIN CAMPOS Performed By: Nhi Gilbert : :Referring: JUSTIN TAVERAS : + + Interpretation Summary Bubbles appear after valsalva release. The left ventricle is normal in size. Left ventricular systolic function appears normal without focal wall motion abnormalities. The ejection fraction is estimated to be 60-65%. Diastolic parameters suggest probable normal left ventricular diastolic function and normal filling pressures. The right ventricle is normal in size and function. The left atrial size is normal. Injection of contrast with valsalva documented an interatrial shunt. There is no significant valvular heart disease. The ascending aorta is mildly enlarged. Procedure: A two-dimensional transthoracic echocardiogram with color flow and Doppler was performed. The study quality was technically difficult. There is no prior echocardiogram noted for this patient. A saline contrast injection was performed to assess for cardiac shunting. The patient was in sinus rhythm with heart rates between 76-81 bpm during the exam. Left Ventricle: The left ventricle is normal in size. Left ventricular wall thickness is at the upper limits of normal. Left ventricular systolic function appears normal without focal wall motion abnormalities. The ejection fraction is estimated to be 60-65%. Diastolic parameters suggest probable normal left ventricular diastolic function and normal filling pressures. Right Ventricle: The right ventricle is normal in size and function. Atria: The left atrial size is normal. Right atrial size is normal. Injection of contrast with valsalva documented an interatrial shunt. Mitral Valve: The mitral valve leaflets appear mildly thickened, but open well. There is trace mitral regurgitation. Aortic Valve: The aortic valve is trileaflet. The aortic valve opens well. There is no aortic valve stenosis. No aortic regurgitation is present. Tricuspid Valve: The tricuspid valve is normal in structure and function. Pulmonary artery pressures cannot be estimated because of the lack of a measurable TR jet velocity. There is trace tricuspid regurgitation. Pulmonic Valve: The pulmonic valve is not well seen, but is grossly normal. There is mild pulmonic regurgitation. There is no significant valvular heart disease. Great Vessels: The aortic root is borderline dilated. The ascending aorta is mildly enlarged. The inferior vena cava was not visualized. Pericardium/ Pleura There is no pericardial effusion. There is no pleural effusion. MMode/2D Measurements & Calculations LVIDd: 5.1 cm LVOT diam: 2.2 cm LVIDs: 3.7 cm Ao root diam: 4.5 cm FS: 27.5 % asc Aorta Diam: 3.8 cm IVSd: 1.0 cm Ao Arch Diam (Prox Trans): 3.3 cm LVPWd: 1.0 cm LV bass. diameter/BSA (cm/m^2): 2.2 LV sys. diameter/BSA (cm/m^2): 1.6 LA A2 area: 22.8 cm2 RA long axis: 5.5 cm LA A4 area: 20.6 cm2 RA area: 20.3 cm2 LA length (vol): 6.0 cm RA vol: 64.5 ml LA vol: 66.9 ml RA : 28.4 ml/m2 LA vol index: 29.4 ml/m2 RVD1 (basal): 3.2 cm TAPSE: 1.8 cm Doppler Measurements & Calculations Ao V2 max: 108.1 cm/sec LVOT Max Laureano: 84.8 cm/sec Ao V2 mean: 80.5 cm/sec LV V1 max P.9 mmHg Ao max P.7 mmHg LV V1 VTI: 18.4 cm Ao mean P.8 mmHg BANG(I,D): 3.0 cm2 Ao V2 VTI: 23.9 cm BANG(V,D): 3.0 cm2 sev ratio: 0.77 BANG indexed to BSA (cm^2/m^2): 1.3 MV E max laureano: 62.3 cm/sec PA V2 max: 78.9 cm/sec MV A max laureano: 59.9 cm/sec PA V2 mean: 49.5 cm/sec MV E/A: 1.0 PA mean P.2 mmHg Med Peak E' Laureano: 6.2 cm/sec E/E' med: 10.1 Lat Peak E' Laureano: 8.4 cm/sec E/E' lat: 7.5 E/e' average: 8.8 MV dec time: 0.22 sec SV(LVOT): 70.7 ml Reading Physician:01:19 PM
[2023-11-17] MEDS: SODIUM CHLORIDE 0.9% FLUSH 10 ML IV (21:57)
[2023-11-18] VITALS: BP 141/73; PULSE 66; RESP 17; TEMP 36.3; O2SAT 97
[2023-11-18 00:04] VITALS: O2SAT 99
[2023-11-18 04:00] VITALS: BP 149/80; PULSE 83; RESP 19; TEMP 36.6; O2SAT 100
[2023-11-18 05:23] LABS: Add Manual Diff / Slide Review NO; Basophils Absolute Auto 0 /uL (0-100); Basophils Percent Auto 0.6 % (0-2); Eosinophils Absolute Auto 200 /uL (0-450); Eosinophils Percent Auto 2.5 % (2-4); Hematocrit 38.5 % (41-53); Hemoglobin 13.1 g/dL (13.5-17.5); Lymphocytes Absolute Auto 1400 /uL (1100-4500); Lymphocytes Percent Auto 20.9 % (25-40); Mean Corpuscular HGB Conc 34.1 % (30-36); Mean Corpuscular Hemoglobin 31.4 PG (26-34); Monocytes Absolute Auto 600 /uL (0-900); Monocytes Percent Auto 9.4 % (3-14); Neutrophils Absolute Auto 4500 /uL (1500-7000); Neutrophils Percent Auto 66.6 % (50-75); Platelet Count 166 X10^3/uL (150-400); Red Blood Cell Count 4.19 X10^6/uL (4.5-5.9); Red Cell Distribution Width 14.1 % (11.6-14.8); White Blood Cell Count 6.8 X10^3/uL (4.5-11.0)
[2023-11-18 05:45] LABS: Alanine Aminotransferase 18 IU/L (<50); Albumin 3.5 g/dL (3.5-5.0); Albumin Globulin Ratio 1.4 (1.0-2.8); Alkaline Phosphatase 63 U/L (38-126); Aspartate Aminotransferase 24 IU/L (17-59); BUN Creatinine Ratio 15.2 (6-22); Bilirubin Total 0.7 mg/dL (0.2-1.3); Blood Urea Nitrogen 16 mg/dL (9-20); Carbon Dioxide 29 mmol/L (22-32); Chloride 109 mmol/L (98-107); Estimated Glomerular Filt Rate > 60 mL/min (>60); Globulin 2.5 g/dL (1.7-4.1); Glucose 104 mg/dL (80-110); HEMOLYSIS < 15 (0-50); Magnesium 2.2 mg/dL (1.6-2.3); Potassium 3.8 mmol/L (3.4-5.1); Sodium 138 mmol/L (137-145)
[2023-11-18 08:00] VITALS: BP 127/70; PULSE 77; RESP 20; TEMP 35.6; O2SAT 97
[2023-11-18] MEDS: LEVOTHYROXINE 100 MCG TABLET PO (08:28)
[2023-11-18] MEDS: ASPIRIN EC 81 MG TABLET PO (08:28)
[2023-11-18] MEDS: CLOPIDOGREL 75 MG TABLET PO (08:28)
[2023-11-18] MEDS: FLUoxetine 20 MG CAPSULE 60 MG PO (08:28)
[2023-11-18] MEDS: ATORVASTATIN 20 MG TABLET 40 MG PO (08:28)
[2023-11-18 08:29] VITALS: BP 127/70
[2023-11-18] MEDS: SODIUM CHLORIDE 0.9% FLUSH 10 ML IV (08:29)
[2023-11-18] MEDS: lisinopriL 10 MG TABLET PO (08:29)
--- NOTE | 2023-11-18 11:47 | DI.US.S_ITS ---
PROCEDURE: US PERIPH VENOUS LOW EXTREM BI INDICATIONS: CVA, with PFO, please evaluate for DVT TECHNIQUE: Real-time imaging, as well as color and pulse Doppler interrogation, were performed of the deep veins of both legs from the inguinal ligament to the popliteal fossa, with documentation of the visualized calf veins. COMPARISON: None. FINDINGS: Right: The common femoral, femoral, popliteal, and the visualized calf veins are normally compressible, and free of intraluminal thrombus. Color and pulse Doppler demonstrate normal phasic intravascular flow. There is normal augmentation response to distal compression maneuver. Left: The common femoral, femoral, popliteal, and the visualized calf veins are normally compressible, and free of intraluminal thrombus. Color and pulse Doppler demonstrate normal phasic intravascular flow. There is normal augmentation response to distal compression maneuver. IMPRESSION: No findings of deep venous thrombosis in either lower extremity. Note: Concordant preliminary findings given by the semiconductor wafers saw operator upon the completion of the examination to Dr. Ugalde at 2:30 p.m. on November 18, 2023. Dictated by: Yong Orosco M.D. on 11/18/2023 at 14:09 Approved by: Yong Orosco M.D. on 11/18/2023 at 14:09
--- NOTE | 2023-11-18 12:00 | CM.DPNOTE ---
DCP Note RECTANGULAR TANK COOPER reviewed EMR. Per hospitalist, echo pending. Anticipate dc home today. Per previous CM notes, no DCP/CM needs identified. Per RN, anticipate no CM needs. Per PT long mooney, indep with mobility. RECTANGULAR TANK COOPER briefly met with pt in room. Pt denied any CM needs. Plan: anticipate home today with spouse. No CM needs identified. CM team will follow as needed. REHANA Colón
--- NOTE | 2023-11-18 14:35 | P.DS_ITS ---
History of Present Illness History of Present Illness Date Patient Seen: 11/18/23 Time Patient Seen: 09:00 Chief complaint: TIA LKW 1920 Narrative: Per admitting provider, The pt is a 67 yo with a hx of a CVA in 2006 that left him with Rt sided clumbsiness and mild weakness who started having slurred speech and facial numbness yesterday on 11/14. He went to [facility] and stayed overnight there for evaluation where a CT head, CTA, and MRI was done which was reported as negative for any new findings. He was discharged home and was there at home for approximately 4 hours before he noted milder slurred speech again and very mild tingling in the Left arm, not leg. He then came to our ER for evaluation. The Er provider inquired to the specialist at the [facility] who recommended repeating the MRI which we cannot get until the morning. A CT head and CTA was negative tonight at our facility. He has been treated for his previous stroke with just 325 mg of aspirin, no plavix, and he is on a statin at home. HE denies any recent illness, acute changes in his health, no change in meds. He reports that he was drinking several beers prior to arrival to the ER on the but none tonight. Discharge Providers Provider Date of admission: 11/16/23 22:59 Discharge Date: 11/18/23 Primary care physician: Matilde Mauro DO Consults: 11/17/23 07:46 Consult to Occupational Therapy Evaluate & Treat Comment: Physician Instructions: Evaluate and treat Consult to Physical Therapy Evaluate & Treat Comment: Physician Instructions: Evaluate and Treat Consult to Speech Therapy Evaluate & Treat Comment: Physician Instructions: Evaluate and treat Discharge provider: Kieran Ugalde DO Summary Hospital Course Discharge Diagnosis: 1. CVA 2. HTN 3. HLD 4. hypothyroidism Hospital Course: This is a 67 year old male with PMH of prior CVA, HTN, HLD, hypothyroidism who presented after recent discharge from OSH with TIA symptoms with slurred speech, facial droop and L arm numbness. His symptoms improved after aspirin and plavix initiation, though MRI did confirm a subacute infarct. He had no telemetry events that were notable. Echocardiogram did show evidence of a PFO. DVT study was performed and was negative for DVT. He was discharged on DAPT for 3 weeks, and because of aspirin therapy initially plavix is recommended to continue after. telestroke recommended cytochrome P450 genetic testing to determine if the patient can be classified as a plavix non-responder. If positive, therapy with brillinta was recommended. This was a send out test, and results may take a couple of weeks to return and should be followed up with primary care provider. He was hypertensive, did well with initiation of 10 mg of lisinopril as well. With his PFO, outpatient follow up with cardiology is recommended to evaluate for possible closure. He was already on atorvastatin on admission, at high intensity 40 mg dosing which is not recommended to be changed at the time of discharge. Further outpatient evaluation may include holter monitor for more prolonged monitoring for atrial fibrillation. Time Spent with Patient Time spent: Greater than 30 minutes Exam Vital Signs (past 8 hours): - 11/18/23 08:00 11/18/23 08:29 Temperature 96.1 F L Pulse Rate 77 Respiratory Rate 20 Blood Pressure 127/70 127/70 Pulse Oximetry 97 Oxygen Flow Rate 0 Oxygen Delivery Method Room Air Oxygen Flow Rate 0 Narrative Exam Narrative: Gen: WDWN male, no acute distress CV: RRR no m/r/g Pulm: CTA b/l Ext: no edema, no subjective numbness to light touch Neuro: mild L facial droop, improved with smile, mild slurring of words speech largely intelligble. Objective Labs 11/18/23 04:30 11/18/23 04:30 Labs: Laboratory Results - last 24 hr 11/18/23 04:30 WBC 6.8 RBC 4.19 L Hgb 13.1 L Hct 38.5 L MCV 92.0 MCH 31.4 MCHC 34.1 RDW 14.1 Plt Count 166 Neut % (Auto) 66.6 Lymph % (Auto) 20.9 L [place] % (Auto) 9.4 Eos % (Auto) 2.5 Baso % (Auto) 0.6 Neut # (Auto) 4500 Lymph # (Auto) 1400 [place] # (Auto) 600 Eos # (Auto) 200 Baso # (Auto) 0 Sodium 138 Potassium 3.8 Chloride 109 H Carbon Dioxide 29 BUN 16 Creatinine 1.05 Estimated GFR > 60 BUN/Creatinine Ratio 15.2 Glucose 104 Calcium 9.0 Magnesium 2.2 Total Bilirubin 0.7 AST 24 ALT 18 Alkaline Phosphatase 63 Total Protein 6.0 L Albumin 3.5 Globulin 2.5 Albumin/Globulin Ratio 1.4 [facility] Medical History Encounter for subsequent annual wellness visit (AWV) in Medicare patient Depression Right sided weakness Hyperlipidemia Hypothyroid Ischemic stroke History of CVA (cerebrovascular accident) Social History household members: spouse Smoking Status: Never smoker alcohol intake: current Discharge Plan Discharge Plan Patient Disposition: Home Provider Discharge Comment: You were admitted to the hospital with a stroke. There is a small hole in the top part of your heart, please follow up with PCP / cardiology about further evaluation of this. You were started on a medication for blood pressure with much improvement. Please continue aspirin and clopidogrel for 3 weeks. After these 3 weeks it is recommended you continue on clopidogrel (plavix) only. Please follow with PCP for results of the genetic testing to see if you need alternative medications as well given the gene testing sent. Discharge orders & Medications Prescriptions: New lisinopril 10 mg tablet 10 mg PO DAILY Qty: 30 0RF clopidogrel 75 mg tablet 75 mg PO DAILY 30 Days Qty: 30 0RF aspirin 81 mg capsule 81 mg PO DAILY Qty: 30 0RF Continued atorvastatin 40 mg tablet 40 mg PO DAILY Qty: 90 3RF fluoxetine 20 mg capsule 60 mg PO DAILY Qty: 270 3RF levothyroxine 100 mcg tablet 100 mcg PO DAILY Qty: 90 3RF Discontinued aspirin 325 mg tablet 325 mg PO DAILY Follow up/Referrals: Matilde Mauro DO [Primary Care Provider] - Diet/Activity/Treatments Diet: Diet as Tolerated, Regular and Low-sodium Activity: As tolerated, no restritctions. Visit Report/Discharge Packet Stand Alone Forms: Patient Portal/API, Stroke Signs & Symptoms Discharge Data Primary Care Provider: Matilde Mauro Attending Provider: Tomi Quintanilla Admit Date/Time: 11/16/23 22:59 Quality VTE Deep Vein Thrombosis/Pulmonary Embolism Present on Admission: No
--- NOTE | 2023-11-18 16:30 | PC.NURSE ---
Discharge Note Patient A&O, VSS, RA, no complaints of pain/discomfort. Patient agreeable to discharge plan. Discharge packet reviewed with patient, all questions/concerns addressed. PIV/TELE discontinued. Patient able to dress self and pack all belongings. Patient taken down via wheelchair to taxi and reminded to pick out hand prescriptions at preferred pharmacy.
== END 2023-11-18 16:30 | disposition home or self-care (01) | DRG 65 ==
LOC: ED 22:59 → AC 23:07
PROVIDERS: Internal Medicine; Admitting Provider Internal Medicine; Emergency Provider Emergency Medicine; PCP Family Medicine; Referring Provider Emergency Medicine; Visit Provider Internal Medicine
DX: I63.9 Cerebral infarction, unspecified (principal); Q21.12 Patent foramen ovale; I10 Essential (primary) hypertension; E78.5 Hyperlipidemia, unspecified; Z86.73 Personal history of transient ischemic attack (TIA), and cerebral infarction without residual deficits; E03.9 Hypothyroidism, unspecified; R29.701 NIHSS score 1; R47.81 Slurred speech; R29.810 Facial weakness; R20.0 Anesthesia of skin; Z79.82 Long term (current) use of aspirin; Z79.890 Hormone replacement therapy; R29.700 NIHSS score 0
CPT/HCPCS: 36415; 70450; 70496; 70498; 70551; 80048; 80053; 80305; 80320; 81001; 82550; 82962; 83735; 84484; 85025; 85610; 85730; 93005; 93010; 93306; 93970; 97161; 99284; G0378; Q9967

== ENCOUNTER → 2023-11-28 14:59 | Outpatient (CLI) | payer MEDICARE, SELFPAY ==
[2023-11-16 23:12] VITALS: BMI 31.6
== END ==
LOC: CAR 15:00
PROVIDERS: PCP Family Medicine; Referring Provider Family Medicine; Visit Provider Family Medicine
DX: I63.9 Cerebral infarction, unspecified (principal)
CPT/HCPCS: 93246

== ENCOUNTER → 2024-05-12 15:14 | Outpatient (CLI) | payer MEDICARE, SELFPAY ==
[2023-11-16 23:12] VITALS: BMI 31.6
[2024-05-12 15:49] LABS: Add Manual Diff / Slide Review NO; Basophils Absolute Auto 0 /uL (0-100); Basophils Percent Auto 0.7 % (0-2); Eosinophils Absolute Auto 100 /uL (0-450); Eosinophils Percent Auto 1.8 % (2-4); Hematocrit 40.7 % (41-53); Hemoglobin 13.8 g/dL (13.5-17.5); Lymphocytes Absolute Auto 1200 /uL (1100-4500); Lymphocytes Percent Auto 17.9 % (25-40); Mean Corpuscular HGB Conc 33.9 % (30-36); Mean Corpuscular Hemoglobin 31.5 PG (26-34); Mean Corpuscular Volume 93.1 fL (80-100); Monocytes Absolute Auto 600 /uL (0-900); Monocytes Percent Auto 8.5 % (3-14); Neutrophils Absolute Auto 4700 /uL (1500-7000); Neutrophils Percent Auto 71.1 % (50-75); Platelet Count 194 X10^3/uL (150-400); Red Blood Cell Count 4.37 X10^6/uL (4.5-5.9); Red Cell Distribution Width 13.8 % (11.6-14.8); White Blood Cell Count 6.5 X10^3/uL (4.5-11.0)
[2024-05-12 15:57] LABS: BUN Creatinine Ratio 16.2 (6-22); Blood Urea Nitrogen 18 mg/dL (9-20); Calcium 9.4 mg/dL (8.4-10.2); Carbon Dioxide 30 mmol/L (22-32); Chloride 104 mmol/L (98-107); Estimated Glomerular Filt Rate > 60 mL/min (>60); Glucose 103 mg/dL (80-110); HEMOLYSIS < 15 (0-50); Potassium 4.4 mmol/L (3.4-5.1); Sodium 138 mmol/L (137-145)
== END ==
PROVIDERS: PCP Family Medicine; Referring Provider Internal Medicine; Visit Provider Internal Medicine
DX: Q21.12 Patent foramen ovale (principal)
CPT/HCPCS: 36415; 80048; 85025

== ENCOUNTER → 2024-09-05 12:18 | Outpatient (CLI) | payer MEDICARE, SELFPAY ==
[2023-11-16 23:12] VITALS: BMI 31.6
--- NOTE | 2024-09-05 12:19 | DI.ECHO.S_ITS ---
[facility] +---------+ Hospital : : [address] : : [place] : : [id number] : : Phone: [phone] Echocardiogram Report + + :Name: NAPOLEON PHELPS Study Date: 09/05/2024 Height: 72 in : :[facility] ReadingLocation: Weight: 232 lb : : Gender: Male BSA: 2.3 m2 : :: 1955 Age: 68 yrs BP: 133/76 mmHg: :Reason For Study: PFO : :Ordering Physician: RUPAL ASHBY Performed By: Morteza Corona : :Referring: RUPAL ASHBY : + + Interpretation Summary This is a limited echocardiogram. 1. The left ventricular contractility is normal. Estimate ejection fraction is greater than 55% with no segmental wall motion abnormalities. Normal left ventricular cavity size. 2. The right ventricle was not well-visualized. However contractility appears to be preserved. 3. There is a closure device noted in the intra-atrial septum. No shunts noted on agitated saline contrast study. 4. No obvious intracardiac masses or thrombi. 5. No hemodynamically significant pericardial effusion. Conclusion: Normal left ventricular systolic function with intact atrial septal defect occluder device. When compared with previous echocardiogram, there is no significant changes in the left ventricular contractility with a new atrial septal occluder device in place. Procedure: A two-dimensional transthoracic echocardiogram with color flow and Doppler was performed in limited views only. The study quality was technically adequate. Comparison is made with the echocardiogram of 11/18/2023. The patient was in normal sinus rhythm during the exam. Left Ventricle: The ejection fraction is estimated to be 55-60%. Atria: S/P PFO closure with 25mm Ampltzer Occluder Device. Injection of contrast documented no interatrial shunt. MMode/2D Measurements & Calculations LVIDd: 5.5 cm LVIDs: 3.9 cm FS: 30.3 % IVSd: 1.0 cm LVPWd: 0.89 cm LV bass. diameter/BSA (cm/m^2): 2.4 LV sys. diameter/BSA (cm/m^2): 1.7 Reading Physician:
== END ==
PROVIDERS: PCP Family Medicine; Referring Provider Internal Medicine; Visit Provider Internal Medicine
DX: Q21.12 Patent foramen ovale (principal); Z95.9 Presence of cardiac and vascular implant and graft, unspecified
CPT/HCPCS: 93307

== ENCOUNTER → 2025-02-13 11:25 | Outpatient (CLI) | payer MEDICARE, SELFPAY ==
[2023-11-16 23:12] VITALS: BMI 31.6
== END ==
PROVIDERS: Internal Medicine Hematology & Oncology; PCP Family Medicine; Referring Provider Family Medicine; Visit Provider Family Medicine
DX: E03.8 Other specified hypothyroidism (principal); E78.49 Other hyperlipidemia; I10 Essential (primary) hypertension; I63.9 Cerebral infarction, unspecified; I82.462 Acute embolism and thrombosis of left calf muscular vein; Z87.74 Personal history of (corrected) congenital malformations of heart and circulatory system; Z79.01 Long term (current) use of anticoagulants
CPT/HCPCS: 36415; 85379; 85651

== ENCOUNTER → 2025-05-29 12:53 | Outpatient (CLI) | payer MEDICARE, SELFPAY ==
[2023-11-16 23:12] VITALS: BMI 31.6
--- NOTE | 2025-05-29 12:54 | DI.CT.S_ITS ---
PROCEDURE: CT ABDOMEN PELVIS W CON INDICATIONS: Lt groin pain/pain, ? hernia TECHNIQUE: After the administration of intravenous contrast, axial sections acquired from the lung bases to the pubic symphysis. Coronal and sagittal reformats were performed. For radiation dose reduction, the following was used: automated exposure control, adjustment of mA and/or kV according to patient size. COMPARISON: None. FINDINGS: Image quality: Diagnostic. Lower Chest: Unchanged clustered nodularity at the right lung base favored inflammatory. ABDOMEN: Liver: No solid mass. Gallbladder: No radiopaque gallstones or wall thickening. Biliary ducts: No biliary dilation. Pancreas: No ductal dilation. Spleen: Size is within normal limits. Adrenal Glands: No adrenal nodules. Kidneys and Ureters: No hydronephrosis. No solid mass. No complex renal cystic lesion which requires follow up. Stomach and Bowel: Normal colonic caliber, without significant wall thickening. Peritoneum: No abnormal intraperitoneal fluid. No free air. Ventral Wall: No significant ventral hernia. Abdominal Nodes: No retroperitoneal or mesenteric adenopathy by size criteria. Vessels: Aorta and inferior vena cava are normal in size. PELVIS: Pelvic Organs: Prostatomegaly. Bladder: Circumferential bladder wall thickening with trabeculation, and right- sided bladder diverticulum. Pelvic Nodes: No enlarged lymph nodes. Miscellaneous: No inguinal hernias are seen. Bones: No aggressive osseous abnormality. Degenerative changes of the visualized spine. IMPRESSION: 1. No evidence of left inguinal hernia on CT as queried. Dynamic evaluation may be performed with ultrasound if further evaluation is desired. 2. Incidental note of prostatomegaly and circumferential bladder wall thickening with trabeculation and right-sided bladder diverticulum, likely secondary to chronic outlet obstruction. Dictated by: Coni Hannon M.D. on 05/30/2025 at 20:58 Approved by: Coni Hannon M.D. on 05/30/2025 at 21:04
[2025-05-29 13:23] LABS: Estimated Glomerular Filt Rate > 60 mL/min (>60)
== END ==
LOC: CT 12:53
PROVIDERS: PCP Family Medicine; Referring Provider Family Medicine; Visit Provider Family Medicine
DX: N32.3 Diverticulum of bladder (principal); N32.89 Other specified disorders of bladder; N40.0 Benign prostatic hyperplasia without lower urinary tract symptoms; R10.32 Left lower quadrant pain
CPT/HCPCS: 36415; 74177; 82565; Q9967

== ENCOUNTER 2025-07-18 10:17 | Emergency (ER) | payer MEDICARE, SELFPAY ==
[2023-11-16 23:12] VITALS: BMI 31.6
[2025-07-18 10:36] VITALS: BP 133/70; PULSE 101; RESP 18; TEMP 37; O2SAT 97; BMI 31.8
--- NOTE | 2025-07-18 11:18 | ED_ITS ---
HPI - Dental/Oral General Chief complaint: Dental/Oral Stated complaint: Swelling in face from tooth infection Time Seen by Provider: 07/18/25 11:09 Source: patient Mode of arrival: Family Vehicle History of Present Illness HPI Narrative: Patient is a 69-year-old male history of CVA right-sided deficits on Eliquis hypothyroid presenting today with right-sided dental pain. Reports that he woke up this morning is quite swollen. He denies any fever chills. No difficulty swallowing no significant tongue pain. He does have pretty poor dentition. Related Data Previous Rx's ?Medication ?Instructions ?Recorded atorvastatin 40 mg tablet 40 mg PO DAILY #90 tabs 08/07 04/30 clopidogrel 75 mg tablet 75 mg PO DAILY 30 days #90 t abs 09/03/24 fluoxetine 20 mg capsule 60 mg (3 x 20 mg) PO DAILY # 270 09/03/24 caps levothyroxine 100 mcg tablet 100 mcg PO DAILY #90 tabs 09/03/24 lisinopril 10 mg tablet 10 mg PO DAILY #90 tabs 08/07 04/30 apixaban 5 mg tablet (Eliquis) 5 mg PO BID #180 tabs 0 03/18/25 tamsulosin 0.4 mg capsule (Flomax) 0.4 mg PO BEDTIME p rostate #100 06/16/25 caps hydrocodone 5 mg-acetaminophen 325 1 tab PO Q6H PRN pa in #10 tabs 07/18/25 mg tablet penicillin V potassium 500 mg 500 mg PO QID #40 tabs 1 09/18/24 tablet Allergies Allergy/AdvReac Type Severity Reaction Status Date / Time No Known Drug Allergies Allergy Verified 07/18/25 10:36 Patient History Medical History BPH (benign prostatic hyperplasia) PFO (patent foramen ovale) Leg DVT (deep venous thromboembolism), chronic 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 do minant side Encounter for subsequent annual wellness visit (AWV) in Medicare patient Depression Right sided weakness Hyperlipidemia Hypothyroid Ischemic stroke History of CVA (cerebrovascular accident) Surgical History History of surgical closure of patent foramen ovale (PFO) Social History household members: spouse Smoking Status: Former smoker alcohol intake: current Smoking Status: Former smoker alcohol intake frequency: a few times a week Exam Initial Vital Signs Initial Vital Signs: Vital Signs Temperature 98.6 F 07/18/25 10:36 Pulse Rate 101 H 07/18/25 10:36 Respiratory Rate 18 07/18/25 10:36 Blood Pressure 133/70 07/18/25 10:36 Pulse Oximetry 97 07/18/25 10:36 Oxygen Delivery Method Room Air 07/18/25 10:36 GENERAL: Well-appearing, well-nourished and in no acute distress. HEENT: He does have significant right lower jaw swelling no significant erythema no neck swelling. Overall poor dentition. No obvious dental abscess but in her bottom lip does show some blisters and swelling CARDIOVASCULAR: peripheral pulses in tact, cap refill <2 sec RESPIRATORY: No respiratory distress, speaks in full sentences without difficulty EXTREMITIES: Normal range of motion, no clubbing or edema. Neurovascularly intact NEUROLOGICAL: Cranial nerves II through XII grossly intact. Normal gait and speech. SKIN: Warm, dry, no petechiae, no rashes or lesions. Course Orders Ordered: Discontinued Medications Hydrocodone Bitart/Acetaminophen (Hydrocodone/Acet 5/325 Tablet) 1 tab PO NOW ONE Stop: 07/18/25 11:25 Last Admin: 07/18/25 11:30 Dose: 1 tab Documented By: TIKA Penicillin V Potassium (Penicillin Vk 250 Mg Tablet) 500 mg PO NOW ONE Stop: 07/18/25 11:25 Last Admin: 07/18/25 11:30 Dose: 500 mg Documented By: TIKA Vital Signs Vital signs: Vital Signs - 8 hr 07/18/25 10:36 Temperature 98.6 F Pulse Rate 101 H Respiratory Rate 18 Blood Pressure 133/70 Pulse Oximetry 97 Oxygen Delivery Method Room Air MDM - Dental/Oral MDM Narrative Medical decision making narrative: Patient is 69-year-old male presents today with right facial swelling. Presumed dental source. He is not septic. No concern for a [place] angina or deep neck soft tissue cellulitis or infection. We will start him on pen VK and pain meds. Discussed with he and about when to return to ED. Given 1st dose of pen VK and hydrocodone in ED Discharge Plan Departure Patient Disposition: Home Clinical Impression: Dental infection Instructions: Tooth Abscess Activity Restrictions/Additional Instructions: *You have been diagnosed with dental infection *What to do: At this time start with antibiotics hopefully in the next 2-3 days antibiotics start working. *Continue to take medications as directed Pen-VK 500 mg 4 times a day 7 days [place] 1 tablet every 4-6 hours if needed for severe pain Avoid ibuprofen due to taking Eliquis *Follow up with your primary care provider in 2-3 days or call [phone] *Return to ER if you should have increasing swelling redness pain difficulty swallowing tongue pain or any new, worsening or concerning symptoms CONTROLLED SUBSTANCE DISCHARGE (Narcotoic/benzodiazepine/Flexeril/Phenergan) 1. You have been prescribed narcotic medications, it does have acetaminophen/Tylenol/paracetamol in it, DO NOT TAKE MORE THAN 4,00mg in 24 hours of Tylenol. TRAMADOL DOES NOT CONTAIN TYLENOL 2. Please understand that we cannot provide further refills of narcotics, benzodiazepines or controlled substances through the ED and her pain management will need to be through your provider. 3. While on these medications you cannot drive or operate heavy machinery. 4. You cannot sign legal documents or perform any duties such as this. 5. As long as you're taking opiate pain medications he should also be taking a stool softener such as Colace, Dulcolax, MiraLAX or prune juice, to help avoid constipation. Prescriptions: New penicillin V potassium 500 mg tablet 500 mg PO QID Qty: 40 0RF hydrocodone-acetaminophen 5-325 mg tablet 1 tab PO Q6H PRN (Reason: pain) Qty: 10 0RF No Action Eliquis 5 mg tablet 5 mg PO BID Qty: 180 3RF atorvastatin 40 mg tablet 40 mg PO DAILY Qty: 90 3RF clopidogrel 75 mg tablet 75 mg PO DAILY 30 Days Qty: 90 3RF fluoxetine 20 mg capsule 60 mg PO DAILY Qty: 270 3RF levothyroxine 100 mcg tablet 100 mcg PO DAILY Qty: 90 3RF lisinopril 10 mg tablet 10 mg PO DAILY Qty: 90 3RF tamsulosin [Flomax] 0.4 mg capsule 0.4 mg PO BEDTIME Qty: 100 3RF Referrals: Matilde Mauro DO [Primary Care Provider, Family Practice] Stand Alone Forms: Patient Portal/API
[2025-07-18] MEDS: PENICILLIN VK 250 MG TABLET 500 MG PO (11:30)
== END 2025-07-18 11:47 | disposition home or self-care (01) ==
PROVIDERS: Emergency Provider Emergency Medicine; PCP Family Medicine
DX: K04.7 Periapical abscess without sinus (principal)
CPT/HCPCS: 99283